=== PATIENT | female | born 1980 | race Caucasian/White ===

== ENCOUNTER → 2016-06-18 | Outpatient (CLI) | payer BC | LOC: HPND 09:13 | PROVIDERS: ATTEND Obstetrics & Gynecology | DX: Z36 Encounter for antenatal screening of mother (principal) | CPT/HCPCS: 36416; 76813 ==

== ENCOUNTER 2016-12-17 11:56 | Emergency (ER) | payer BC ==
[2016-12-17 12:09] VITALS: BP 128/76; PULSE 70
[2016-12-17 12:10] VITALS: PULSE 87; O2SAT 99
[2016-12-17 12:15] VITALS: RESP 18
[2016-12-17] MEDS ORDERED: LACTATED RINGER'S 1000 ML INJ 1,000 ML IV SCH (12:24)
[2016-12-17 12:30] VITALS: BP 127/76; PULSE 67
[2016-12-17 12:33] VITALS: BP 126/69; PULSE 96
[2016-12-17 12:34] VITALS: BP 130/75; PULSE 120
[2016-12-17 12:37] LABS: HEMATOCRIT 30.4 % (35.0-46.0); MEAN CELL VOLUME 90.8 FL (80.0-100.0); MEAN CORPUSCULAR HEMOGLOBIN 30.4 PG (27.0-34.0); MEAN CORPUSCULAR HGB CONC 33.5 % (32.0-36.0); PLATELET COUNT 171 TH/MM3 (150-450); RED BLOOD COUNT 3.35 MIL/MM3 (4.00-5.30); REVIEW FLAG FINAL; WHITE BLOOD COUNT 19.8 TH/MM3 (4.0-11.0)
--- NOTE | 2016-12-17 12:38 | PD ---
HPI Chief Complaint Passed out after Date Seen: Dec 17, 2016 (Garret Mcarthur MD R1) Travel History International Travel<30 Days: No Contact w/Intl Traveler<30Days: No (Garret Mcarthur MD) History of Present Illness HPI 36 year old s/p NVD at 0525 this morning presents following passing. Patient states that following giving she attempted to stand up and felt lightheaded, dizzy, had a warm sensation in her head then passed out. This is her first delivery, she reports there was a small laceration which needed about 6 stitches. There was an unknown amount of blood loss. The patient has needed to change her pad 3 times at this point, but believes there is decreased bloody discharge at this point. She is unsure if she had any medications after labor, but drank several glasses of water and tea. Reports nothing administered IV. She states she continues to feel lightheaded and dizzy at this point if she sits up. No nausea, vomiting, fever, chills, headache, change in vision, chest pain, shortness of breath, pain in legs. Para: 1 : 2 Miscarriage: 1 (Garret Mcarthur MD) History Past Medical History Medical History: Denies Significant Hx (Garret Mcarthur MD) Past Surgical History Narrative Surgical [place] tooth extraction as a child (Garret Mcarthur MD) Family History Family History: Negative (Garret Mcarthur MD) Social History Alcohol Use: No Tobacco Use: No Substance Abuse: No (Garret Mcarthur MD) Allergies-Medications (Allergen,Severity, Reaction): Coded Allergies: No Known Allergies (Verified Allergy, Unknown, 12/17/16) Review of Systems General / Constitutional: No: Fever, Chills Eyes: No: Diploplia, Blurred Vision, Visual changes, Pain HENT: Vertigo, Lightheadedness, No: Headaches Cardiovascular: Syncope, No: Irregular Rhythm, Chest Pain or Discomfort, Palpitations, Tachycardia Respiratory: No: Cough, Short of Breath, Wheezing Gastrointestinal: No: Nausea, Vomiting, Diarrhea, Abdominal Pain, Hematemesis Genitourinary: No: Urgency, Dysuria, Hematuria Musculoskeletal: No: Limited ROM, Weakness, Cramping, Edema Skin: No Rash, No Itching, No Dryness, No Lumps Neurologic: No: Weakness, Dizziness, Syncope, Headache Psychiatric: No: Anxiety, Depression Endocrine: No: Heat Intolerance, Cold Intolerance (Garret Mcarthur MD R1) Physical Exam Narrative GENERAL: Well-nourished, well-developed patient. SKIN: Warm and dry, pale HEAD: Normocephalic and atraumatic. EYES: No scleral icterus. No injection or drainage. ENT: No nasal drainage noted. Mucous membranes pale. Airway patent. NECK: Supple, trachea midline. No JVD. CARDIOVASCULAR: Regular rate and rhythm without murmurs, gallops, or rubs. RESPIRATORY: Breath sounds equal bilaterally. No accessory muscle use. ABDOMEN/GI: Abdomen soft, tender, bowel sounds present, no rebound, no guarding. Firm uterus palpated just below the umbilicus GENITOURINARY: External Genitalia: intact and normal in appearance, blood in pad and at introitus EXTREMITIES: No cyanosis or edema. BACK: Nontender without obvious deformity. No CVA tenderness. NEUROLOGICAL: Awake and alert. Motor and sensory grossly within normal limits. Five out of 5 muscle strength in all muscle groups. Normal speech. (Garret Mcarthur MD R1) AFVSS. Orthostatics- lying BP 127/76, HR 67 sitting BP 126/69 HR 96 standing 130/75 HR 120 (Yumiko Massey MD) Data Data Orders Orders Vital Signs (Adult) .ON ADMISSION (12/17/16 12:18) Diet Regular Basic (12/17/16 Lunch) Cbc No Diff, Includes Plts (12/17/16 12:18) Lactated Ringer's 1000 Ml Inj (Lr 1000 M (12/17/16 12:24) (Garret Mcarthur MD R1) Labs Laboratory Tests Test 12/17/16 12:24 White Blood Count 19.8 TH/MM3 Red Blood Count 3.35 MIL/MM3 Hemoglobin 10.2 GM/DL Hematocrit 30.4 % Mean Corpuscular Volume 90.8 FL Mean Corpuscular Hemoglobin 30.4 PG Mean Corpuscular Hemoglobin Concent 33.5 % Red Cell Distribution Width 13.0 % Platelet Count 171 TH/MM3 Mean Platelet Volume 8.5 FL (Yumiko Massey MD) MDM Narrative Course / MDM 36 year old s/p NVD approximately 7 hours prior to admission. Currently complains of lightheadedness, dizziness, recent syncope. Pale with some bleeding at introitus. -stat CBC -IV fluids -Orthostatics -Fall risk precautions -Monitor for bleeding (Garret Mcarthur MD R1) Interpretation(s) S/p prior to arrival, presented with lightheadedness, orthostatic Plan Will obtain orthostatics. Will obtain CBC. IVF. Monitor closely. After monitoring, patient ambulating well and tolerating po. Bleeding- mild lochia. Will d/c home. Close f/u with provider, all questions answered. (Yumiko Massey MD) Diagnosis Diagnosis: Primary Impression: syncope secondary to hypovolemia Additional Impression: day 0 Disposition: 01 DISCHARGE HOME Condition: Good Garret Mcarthur MD R1 Dec 17, 2016 12:38 Yumiko Massey MD Dec 17, 2016 12:52
== END 2016-12-17 15:26 | disposition home or self-care (01) ==
LOC: HOBED 11:56
DX: O90.89 Other complications of the puerperium, not elsewhere classified (principal); R55 Syncope and collapse; E86.1 Hypovolemia
CPT/HCPCS: 85027; 96360; 99283; J7120